=== PATIENT | female | born 1965 | race African-American/Black ===

== ENCOUNTER 2017-08-23 10:37 | Outpatient (CLI) | payer OTHER ==
--- NOTE | 2017-08-23 12:32 | Mammography Report ---
BILATERAL DIGITAL SCREENING MAMMOGRAM with CAD: 08/23/17 10:37:00 CLINICAL: Routine screening. COMPARISON:03/12/14 FINDINGS: The breasts are heterogeneously dense, which may obscure small masses. No mass, architectural distortion or suspicious calcifications. IMPRESSION: No mammographic evidence of malignancy. BI-RADS CATEGORY: 1 - - Negative RECOMMENDATION: Routine mammographic screening in one year. COMMENT: Patient follow-up letters are generated by our [employer] application.
== END 2017-08-23 10:38 | disposition home or self-care (01) ==
LOC: MAMMO 10:37
PROVIDERS: ATTEND Family Medicine
DX: Z12.31 Encounter for screening mammogram for malignant neoplasm of breast (principal)
CPT/HCPCS: 77067; G0202

== ENCOUNTER 2019-09-11 10:29 | Outpatient (CLI) | payer OTHER ==
--- NOTE | 2019-09-11 12:19 | XRay Report ---
CERVICAL SPINE, 5 VIEWS INDICATION: 54.12 CERVICAL RADICULOPATHY. COMPARISON: None. IMPRESSION: Bone mineralization appears normal. There is normal height and alignment of the cervica l vertebral bodies. Mild to moderate disc space narrowing is identified at C3-4, C4-5, C5-6 and C6-7. The oblique images poorly demonstrate the neural foramen but there is suggestion of mild to moderate bony narrowing of the right neural foramen at C6-7. No acute osseous or soft tissue abnormality. I f radicular symptoms are present consider further evaluation with MR cervical spine without contrast. Signer Name: Seb Martinez Jr, MD Signed: 09/11/2019 12:14 PM Workstation Name: [id number]
--- NOTE | 2019-09-12 11:09 | Mammography Report ---
DIGITAL SCREENING MAMMOGRAM WITH CAD, 09/11/2019 INDICATION: Routine screening mammography. TECHNIQUE: Digital bilateral 2D mammography was obtained in the craniocaudal and mediolateral obliq ue projections. This examination was interpreted with the benefit of Computer-Aided Detection analysi s. COMPARISON: 08/29/2018 FINDINGS: Breast Density: The breasts are heterogeneously dense, which may obscure small masses. There is no evidence of dominant mass, suspicious calcifications or architectural distortion in eithe r breast. IMPRESSION: No mammographic evidence of malignancy. Follow up recommendation: Routine yearly BI-RADS Category 1: Negative. A "normal" or negative report should not discourage follow up or biopsy of a clinically significant f inding. A written summary of these findings will be mailed to the patient. The patient will be entered into a mammography reporting system which will generate a reminder letter for the patient's next appointmen t at the appropriate interval. The [employer] recommends yearly mammograms starting at age 40 and continuing as l ge[place] as a woman is in good health. Breast MRI is recommended for women with an approximate 20-25% or greater lifetime risk of breast cancer, including women with a strong family history of breast or ova avery cancer or who have been treated for Hodgkin's disease. Signer Name: Xiang Murphy MD Signed: 09/12/2019 11:05 AM Workstation Name: [id number]
== END 2019-09-11 10:30 | disposition home or self-care (01) ==
LOC: MAMMO 10:29
PROVIDERS: ATTEND Family Medicine
DX: Z12.31 Encounter for screening mammogram for malignant neoplasm of breast (principal); M54.12 Radiculopathy, cervical region
CPT/HCPCS: 72052; 77067

== ENCOUNTER 2020-09-17 10:29 | Outpatient (CLI) | payer OTHER ==
--- NOTE | 2020-09-17 12:15 | Mammography Report ---
BILATERAL DIGITAL SCREENING MAMMOGRAM WITH CAD HISTORY: Screening mammogram. TECHNIQUE: Routine digital mammographic imaging performed. This examination was interpreted with jesus patterson benefit of Computer-aided Detection analysis. COMPARISON: 09/11/2019, 08/29/2018, 08/23/2017. FINDINGS: Breast Density: heterogeneously dense breast parenchymal pattern which somewhat lessens the sensitivi ty of the evaluation. Digital CC and MLO views demonstrate no mammographic evidence of malignancy. IMPRESSION: No mammographic evidence of malignancy. If the clinical examination remains stable, recommend bilate ral mammogram in approximately one year. BIRADS 1: Negative. FURTHER INFORMATION: According to the [employer], yearly mammograms are recommend ed starting at age 40 and continuing as long as a woman is in good health. Clinical Breast Exams shou ld be part of a periodic health exam-about every 3 years for women in their 20s and 30s and every yea r for women 40 and over. Breast self exam is an option for women starting in their 20s. Any breast ch kim noted on a breast self exam should be reported promptly to the patient's healthcare provider. Br east MRI is recommended for women with an approximately 20-25% or greater lifetime risk of breast can cer, including women with a strong family history of breast or ovarian cancer and women who have been treated for Hodgkin's disease. A negative Mammography report should not discourage follow up or biopsy of a clinically significant f inding and/or abnormality. Dense breast tissue may obscure small neoplasms. The patient will be entered into a reminder system with a target due date for the next screening mamm ogram. Signer Name: Rico Danielle MD Signed: 09/17/2020 12:11 PM Workstation Name: [id number]
== END 2020-09-17 10:30 | disposition home or self-care (01) ==
LOC: MAMMO 10:29
PROVIDERS: ATTEND Family Medicine
DX: Z12.31 Encounter for screening mammogram for malignant neoplasm of breast (principal)
CPT/HCPCS: 77067

== ENCOUNTER 2021-10-07 09:26 | Outpatient (CLI) | payer OTHER ==
--- NOTE | 2021-10-07 10:22 | Mammography Report ---
DIGITAL SCREENING MAMMOGRAM WITH CAD, 10/07/2021 CLINICAL INFORMATION / INDICATION: Routine screening mammography. SCREENING MAMMOGRAM TECHNIQUE: Digital bilateral 2D mammography was obtained in the craniocaudal and mediolateral obliqu e projections. This examination was interpreted with the benefit of Computer-Aided Detection analysis . COMPARISON: 09/17/2020, 09/11/2019, 08/29/2018 FINDINGS: Breast Density: The breasts are heterogeneously dense, which may obscure small masses. No dominant mass, suspicious calcifications, or architectural distortion in either breast. IMPRESSION: No mammographic evidence of malignancy. Follow up recommendation: Routine yearly BI-RADS Category 1: NEGATIVE A "normal" or negative report should not discourage follow up or biopsy of a clinically significant f inding. A written summary of these findings will be mailed to the patient. The patient will be entered into a mammography reporting system which will generate a reminder letter for the patient's next appointmen t at the appropriate interval. The [employer] recommends yearly mammograms starting at age 40 and continuing as l ge[place]ina as a woman is in good health. Breast MRI is recommended for women with an approximate 20-25% or greater lifetime risk of breast cancer, including women with a strong family history of breast or ova avery cancer or who have been treated for Hodgkin's disease. Signer Name: Osmany aLw DO Signed: 10/07/2021 10:17 AM Workstation Name: [id number]
== END 2021-10-07 09:27 | disposition home or self-care (01) ==
LOC: MAMMO 09:26
DX: Z12.31 Encounter for screening mammogram for malignant neoplasm of breast (principal)
CPT/HCPCS: 77067